=== PATIENT | male | born 1960 | race African-American/Black ===

== ENCOUNTER 2016-12-28 11:55 | Emergency (ER) | payer MEDICAID, OTHER ==
[~2016-12-28] VITALS: Ht 182.9 cm; Wt 104.3 kg
[~2016-12-28 11:55] MED LIST: ABILIFY15 MG PO; LEXAPRO20 MG PO; NORCO 5-325 TA1 EACH PO
--- NOTE | 2016-12-28 12:41 | Emergency Room Report ---
"History of Present Illness General Chief Complaint: Pain Source: Patient Present Illness HPI 56-year-old male presents emergency department complaining of 10 out of 10 in severity left-sided low back pain that shoots down into the left leg x2 days. Patient states that the pain is mainly localized in the left upper buttock. Patient states onset was immediately after helping to move his older brother who is bedbound. Patient denies saddle anesthesia denies incontinence denies history of neoplastic disease or recent spinal procedure denies fevers, erythema or bruising patient denies trauma or fall. Denies numbness tingling or loss of sensation or gross motor movements of the extremities, incontinence of bowel or bladder. Denies CP, Palpitations, LOC, AMS, dizziness, Changes in Vision, Sensation, paresthesias, or a sudden severe headache. Allergies: Coded Allergies: No Known Allergies (Unverified , 09/26/12) Patient History Past Medical History: see triage record Past Surgical History: none Pertinent Family History: none Immunizations: UTD Reviewed Nursing Documentation: PMH: Agreed, PSxH: Agreed Nursing Documentation-PMH Past Medical History: No History, Except For Review of Systems All Other Systems: negative except mentioned in HPI Physical Exam Vital Signs Date Time Temp Pulse Resp B/P Pulse Ox O2 Delivery O2 Flow Rate FiO2 12/28/16 12:14 98.4 74 15 178/82 97 Room Air Sp02 EP Interpretation: reviewed, normal General Appearance: no apparent distress, alert, GCS 15, non-toxic Head: normocephalic, atraumatic Eyes: bilateral eye PERRL, bilateral eye normal inspection ENT: hearing grossly normal, normal pharynx, no angioedema, normal voice Neck: full range of motion, supple/symm/no masses Respiratory: chest non-tender, lungs clear, normal breath sounds, speaking full sentences Cardiovascular #1: regular rate, rhythm, no edema, normal capillary refill Genitourinary: normal inspection, no CVA tenderness Musculoskeletal: back normal, gait/station normal, normal range of motion, no calf tenderness, tender - left paraspinal and upper gluteal ttp in the lumbar/ sacral region, no midline ttp, no right sided ttp, FROM with pain exacerbated with forward flexion. Neurologic: alert, oriented x3, responsive, motor strength/tone normal, sensory intact, speech normal Psychiatric: judgement/insight normal, memory normal, mood/affect normal Skin: normal color, no rash, warm/dry, well hydrated Lymphatic: no adenopathy Medical Decision Making PA Attestation Dr. Florez is my supervising Physician whom patient management has been discussed with. Diagnostic Impression: Primary Impression: Sciatica of left side ER Course Pt. presents to the ED c/o Left -sided low back pain that is mainly localized in the upper left buttock and shoots down the leg x 2 day(s). pt states onset was after helping to move his older brother who is bed bound. denies incontinence, saddle anesthesia, fevers, or recent spinal procedures, no hx of neoplastic disease. Ddx considered but are not limited to Fracture, dislocation, contusion, epidural abscess, Sprain/Strain/Spasm Vital signs: are WNL, pt. is afebrile H&PE are most consistent with sciatica of the left side Pt. unable to tolerate straight leg raise. ORDERS: X-ray not required at this time, no spinous process tenderness ED INTERVENTIONS: - 350mg Soma PO - IM Toradol 60mg. Re-Evaluation: pt. states his pain has subsided with ED interventions DISCHARGE: At this time pt. is stable for d/c to home. Will provide printed patient care instructions, and any necessary prescriptions. Care plan and follow up instructions have been discussed with the patient prior to discharge. Last Vital Signs Date Time Temp Pulse Resp B/P Pulse Ox O2 Delivery O2 Flow Rate FiO2 12/28/16 12:14 98.4 74 15 178/82 97 Room Air Disposition: HOME, SELF-CARE Condition: Stable Patient Instructions: Sciatica Additional Instructions: Take medications as directed. Follow up with PCP in 3-5 days Return sooner to ED if new symptoms occur, or current symptoms become worse. Do not drink alcohol, drive, or operate heavy machinery while taking muscle relaxers as this may cause drowsiness. - Please note that this Emergency Department Report was dictated using [id number] teacher technology software, occasionally this can lead to erroneous entry secondary to interpretation by the dictation equipment. Cassandra Preciado Dec 28, 2016 12:41"
[2016-12-28] MEDS ORDERED: IBUPROFEN600 MG ORAL (12:43)
[2016-12-28] MEDS ORDERED: CYCLOBENZAPRINE10 MG ORAL (12:43)
[2016-12-28] MEDS ORDERED: Ketorolac 60mg Inj IM ONE (12:45)
[2016-12-28 13:26] VITALS: BP 150/85
[2016-12-28 13:29] VITALS: BP 150/85
== END 2016-12-28 13:29 | disposition home or self-care (01) ==
LOC: EMR 12:40
DX: M54.32 Sciatica, left side (principal)
CPT/HCPCS: 96372; 99284

== ENCOUNTER 2017-02-01 10:14 | Emergency (ER) | payer MEDICAID ==
[~2017-02-01] VITALS: Ht 182.9 cm; Wt 90.7 kg
[~2017-02-01 10:14] MED LIST changes: +CYCLOBENZAPRINE10 MG ORAL; +IBUPROFEN600 MG ORAL
[2017-02-01] MEDS ORDERED: Cyclobenzaprine 10mg Tab ORAL ONE (11:45)
[2017-02-01] MEDS ORDERED: Ketorolac 30mg Inj IM ONE (11:45)
[2017-02-01] MEDS ORDERED: ACETAMINOPHEN-1 EAC1 ORAL (12:23)
[2017-02-01] MEDS ORDERED: CYCLOBENZAPRINE10 MG ORAL (12:23)
[2017-02-01 12:27] VITALS: BP 157/95
--- NOTE | 2017-02-02 06:53 | Emergency Room Report ---
History of Present Illness General Chief Complaint: Lower Back Pain or Injury Source: Patient Present Illness HPI 48-year-old male presents ED complaining of back pain and left knee pain. States that he attempted to lift his brother who was paralyzed the other day and felt a twinge in his lower back. Patient was seen in ER a few days ago and was prescribed medications. States they are not helping. Notes pain to the lower back and left knee. Cramping in nature, 8/10, nonradiating. No other aggravating or relieving factors. Patient denies any pain at this time but states that when the pain starts it is usually cramping. Denies any other associated symptoms Allergies: Coded Allergies: IBUPROFEN (Unverified Allergy, Unknown, 02/01/17) Uncoded Allergies: MOTRIN (Allergy, Unknown, 02/01/17) Patient History Past Medical History: none Past Surgical History: none Pertinent Family History: none Social History: Denies: alcohol use, drug use, smoking Immunizations: UTD Reviewed Nursing Documentation: PMH: Agreed, PSxH: Agreed Nursing Documentation-PMH Past Medical History: No Stated History Review of Systems All Other Systems: negative except mentioned in HPI Physical Exam Vital Signs Date Time Temp Pulse Resp B/P Pulse Ox O2 Delivery O2 Flow Rate FiO2 02/01/17 11:06 97.3 57 16 151/95 98 Room Air Sp02 EP Interpretation: reviewed, normal General Appearance: no apparent distress, alert, GCS 15, non-toxic Head: normocephalic Eyes: bilateral eye PERRL, bilateral eye normal inspection ENT: normal ENT inspection Neck: full range of motion, supple/symm/no masses Respiratory: chest non-tender, lungs clear, normal breath sounds, speaking full sentences Cardiovascular #1: regular rate, rhythm, no edema Gastrointestinal: normal inspection Rectal: deferred Genitourinary: no CVA tenderness Musculoskeletal: tender - paraspinal lumbar tenderness Neurologic: alert, oriented x3, responsive, motor strength/tone normal, sensory intact, speech normal Psychiatric: normal inspection Skin: normal color, no rash, warm/dry, well hydrated Lymphatic: normal inspection Medical Decision Making Diagnostic Impression: Primary Impression: Muscle strain ER Course Hospital Course 56-year-old male presents to ED complaining of lower back and left leg cramping after lifting his brother Differential diagnoses include: Fracture, dislocation, sprain, contusion, bursitis Clinical course Patient placed on stretcher. After initial history, physical exam reveals an middle-aged male in no acute distress. There is some paraspinal tenderness in the lower back, no vertebral body tenderness. Also states there is usually pain in the quadricep muscle on the left, no knee pain. No pain at this time. I agree with patient's assessment that the pain is likely muscular. I do not believe imaging required at this time. Patient states last time he was here he received an injection which helped. Patient received Toradol Patient given Toradol here. We will try different prescriptions for his pain I recommend orthopedic followup Diagnosis - muscle strain stable and discharged to home with prescription for tylenol, flexeril. Followup with PMD. Return to ED if symptoms recur or worsen Last Vital Signs Date Time Temp Pulse Resp B/P Pulse Ox O2 Delivery O2 Flow Rate FiO2 02/01/17 12:27 98.0 62 14 157/95 98 Room Air Status: improved Disposition: HOME, SELF-CARE Condition: Stable Scripts Cyclobenzaprine Hcl* (FLEXERIL*) 10 Mg Tablet 10 MG ORAL TID Y for Muscle Spasm, #20 TAB Prov: BAY HARO M.D. 02/01/17 Acetaminophen With Codeine (T#3) (TYLENOL #3 TAB*) Y Tab 1 TAB ORAL Q8H Y for For Pain, #20 TAB Prov: BAY HARO M.D. 02/01/17 Patient Instructions: Lumbosacral Strain BAY HARO M.D. February 02, 2017 06:52
== END 2017-02-01 12:30 | disposition home or self-care (01) ==
LOC: EMR 11:01
DX: S86.812A Strain of other muscle(s) and tendon(s) at lower leg level, left leg, initial encounter (principal); X50.9XXA Other and unspecified overexertion or strenuous movements or postures, initial encounter; Y92.89 Other specified places as the place of occurrence of the external cause; Z88.6 Allergy status to analgesic agent
CPT/HCPCS: 96372; 99284; J1885